=== PATIENT | female | born 1995 | race Caucasian/White ===

== ENCOUNTER 2017-07-06 04:49 | Inpatient (IN) | payer OTHER, MEDICAID ==
[2017-07-06] MEDS ORDERED: BRETHINE IVP PRN ×2 (05:47→09:00)
[2017-07-06] MEDS ORDERED: MINERAL OIL PO PRN ×2 (05:47→08:30)
[2017-07-06] MEDS ORDERED: ePHEDrine SULFATE IV PRN ×2 (05:47→08:30)
[2017-07-06] MEDS ORDERED: BRETHINE SUB-Q PRN ×2 (05:47→09:00)
[2017-07-06] MEDS ORDERED: XYLOCAINE 2% INFILTRATI ONE ×2 (05:47→09:00)
[2017-07-06] MEDS ORDERED: LACTATED RINGERS 1,000 ML ONE (05:48)
[2017-07-06] MEDS ORDERED: PITOCin/NS 30 UNIT/500ML 30 UNITS/500 ML BAG IV SCH ×4 (06:00→08:30)
[2017-07-06] MEDS ORDERED: PITOCin/NS 20 UNIT/1000ML DRIP 20 UNITS/1,000 ML BAG IV SCH ×2 (06:00→09:00)
[2017-07-06 06:04] LABS: Hematocrit 35.7 % (30.3-42.9); Hemoglobin 11.9 gm/dl (10.1-14.3); Mean Corpuscular HGB Conc 33 % (30-34); Mean Corpuscular Hemoglobin 27 pg (28-32); Mean Corpuscular Volume 82 fl (79-97); Platelet Count 178 K/mm3 (140-440); Red Blood Count 4.38 M/mm3 (3.65-5.03); Red Cell Distribution Width 15.7 % (13.2-15.2); White Blood Count 13.4 K/mm3 (4.5-11.0)
[2017-07-06] MEDS ORDERED: SUBLIMAZE IV PRN (06:16)
[2017-07-06] MEDS: LACTATED RINGERS 1,000 ML IV SCH ×2 (06:43→08:18)
[2017-07-06] MEDS ORDERED: fentaNYL-BUPIV 2 MCG/ML-0.125% 0 MCG/0 ML BAG EPIDURAL ONE (07:12)
--- NOTE | 2017-07-06 07:51 | History and Physical Report ---
History of Present Illness Date of examination: 07/06/17 Date of admission: 07/06/17 05:57 History of present illness: 22 yo LMP 07/24/17 @ 37.3 weeks presented to triage in active labor. Second trimeter transfer entry into care at 26 weeks. Morbid Obesity with APA comang' t. U/S for EFW 07/02/17: 6-7oz Past History Past Medical History: no pertinent history Past Surgical History: no surgical history Family/Genetic History: diabetes, hypertension Social history: no significant social history - Obstetrical History Expected Date of Delivery: 07/24/17 Actual Gestation: 37 Week(s) 3 Day(s) : 2 Para: 1 Hx # Term Pregnancies: 1 Number of Living Children: 1 Medications and Allergies Allergies Allergy/AdvReac Type Severity Reaction Status Date / Time No Known Allergies Allergy Unverified 07/06/17 05:07 Home Medications Medication Instructions Recorded Confirmed Last Taken Type Vit-Fe Fumar-FA [ 1 tab PO QDAY 07/06/17 07/06/17 Unknown History Vitamin] Active Meds: Active Medications Ephedrine Sulfate (Ephedrine Sulfate) 10 mg IV Q2M PRN PRN Reason: Hypotension Fentanyl (Sublimaze) 100 mcg IV ONCE PRN PRN Reason: Labor Pain Last Admin: 07/06/17 06:42 Dose: 100 mcg Lactated Ringer's (Lactated Ringers) 1,000 mls @ 125 mls/hr IV DIRECT MICHELLE Last Admin: 07/06/17 06:43 Dose: 125 mls/hr Oxytocin/Sodium Chloride (Pitocin/Ns 20 Unit/1000ml Drip) 20 units in 1,000 mls @ 125 mls/hr IV DIRECT MICHELLE Oxytocin/Sodium Chloride (Pitocin/Ns 30 Unit/500ml) 30 units in 500 mls @ 2 mls /hr IV TITR MICHELLE PRN Reason: Protocol Oxytocin/Sodium Chloride (Pitocin/Ns 30 Unit/500ml) 30 units in 500 mls @ 1 mls /hr IV TITR MICHELLE; 1 MILLIUNITS/MIN PRN Reason: Protocol Mineral Oil (Mineral Oil) 30 ml PO QHS PRN PRN Reason: Constipation Terbutaline Sulfate (Brethine) 0.25 mg SUB-Q ONCE PRN PRN Reason: Hyperstimulation/Hypertonicity Terbutaline Sulfate (Brethine) 0.25 mg IVP ONCE PRN PRN Reason: Hyperstimulation/Hypertonicity Review of Systems All systems: negative - Vital Signs Vital signs: Vital Signs Pulse BP 71 123/82 07/06/17 05:05 07/06/17 05:05 Temp Pulse Resp BP Pulse Ox 98.8 F 110 H 18 127/77 82 L 07/06/17 07:15 07/06/17 07:43 07/06/17 07:15 07/06/17 06:29 07/06/17 07:43 - Physical Exam Breasts: Positive: deferred Abdomen: Positive: normal appearance, soft. Negative: distention Genitourinary (Female): Positive: normal external genitalia, normal perenium Vagina: Positive: normal moisture - Obstetrical FHR: category 1 Uterine Contraction Monitor Mode: External Cervical Dilatation: 10 Cervical Effacement Percentage: 100 station: -3 Uterine Contraction Pattern: Regular Uterine Tone Measurement Phase: Resting Uterine Contraction Intensity: Moderate Results Result Diagrams: 07/06/17 05:43 Abnormal lab results 07/06/17 Range/Units 05:43 WBC 13.4 H (4.5-11.0) K/mm3 MCH 27 L (28-32) pg RDW 15.7 H (13.2-15.2) % All other labs normal. Assessment and Plan A: IUP at 37 weeks Second stage labor Recent Epidural insitu P: AROM Anticipate
[2017-07-06] MEDS ORDERED: LACTATED RINGERS 1,000 ML IV SCH (08:00)
--- NOTE | 2017-07-06 08:02 | Anesthesia Consultation ---
Anesthesia Consult and Med Hx Date of service: 07/06/17 - Airway Anesthetic Teeth Evaluation: Good ROM Head & Neck: Adequate Mental/Hyoid Distance: Adequate Mallampati Class: Class II Intubation Access Assessment: Probably Good - Pulmonary Exam CTA: Yes - Cardiac Exam Cardiac Exam: RRR - Pre-Operative Health Status ASA Pre-Surgery Classification: ASA2 Proposed Anesthetic Plan: Epidural - Pulmonary Hx Asthma: No COPD: No Hx Pneumonia: No - Cardiovascular System Hx Hypertension: No - Central Nervous System Hx Seizures: No Hx Psychiatric Problems: No - Endocrine Hx Renal Disease: No Hx End Stage Renal Disease: No Hx Hypothyroidism: No Hx Hyperthyroidism: No - Hematic Hx Anemia: No Hx Sickle Cell Disease: No - Other Systems Hx Alcohol Use: No
--- NOTE | 2017-07-06 08:30 | Procedure Note ---
OB Delivery Note - Delivery Date of Delivery: 07/06/17 (6-11 oz male @ 0853) Surgeon: FRAN MARS Estimated blood loss: 200cc - Vaginal Delivery presentation: vertex Delivery position: OA Intrapartum events: none Delivery augmentation: rupture of membranes Delivery monitor: external FHT, external uterine Route of delivery: Delivery placenta: spontaneous Delivery cord: 3 umbilical vessels Episiotomy: none Delivery laceration: none Anesthesia: epidural - A at 1 minute: 9 at 5 minutes: 9 Gender: Male (Placed skin to skin. spont. placenta. Bleeding small. FF 3below U, ML. No lacerations.)
[2017-07-06] MEDS ORDERED: PHENERGAN PR PRN (09:15)
[2017-07-06] MEDS ORDERED: TUCKS PAD TP PRN (09:15)
[2017-07-06] MEDS ORDERED: ZOFRAN IV PRN (09:15)
[2017-07-06] MEDS ORDERED: DULCOLAX PR PRN (09:15)
[2017-07-06] MEDS ORDERED: BENADRYL PO PRN (09:15)
[2017-07-06] MEDS ORDERED: PHENERGAN PO PRN (09:15)
[2017-07-06] MEDS ORDERED: MILK OF MAGNESIA PO PRN (09:15)
[2017-07-06] MEDS ORDERED: TYLENOL PO PRN (09:15)
[2017-07-06] MEDS ORDERED: SODIUM CHLORIDE FLUSH SYRINGE 10 ML IV NR (10:00)
[2017-07-06] MEDS: LANSINOH TP PRN (12:59)
[2017-07-06] MEDS: MOTRIN PO SCH ×2 (12:59→18:22)
[2017-07-06] MEDS: NORCO 5/325 PO PRN ×2 (14:20→18:21)
[2017-07-07] MEDS: MOTRIN PO SCH ×5 (00:06→22:00)
--- NOTE | 2017-07-07 10:05 | Progress Note ---
Assessment and Plan PPD#1 s/p ambulating well h/h 11.9-10 Iron given tolerating diet breast and bottle feeding consider d/c home tomorrow routine PP care Subjective - Subjective Date of service: 07/07/17 Principal diagnosis: Patient reports: appetite normal, voiding normally, pain well controlled, flatus , ambulating normally [place]: doing well Objective - Vital Signs Latest vital signs: Vital Signs Temp Pulse Resp BP BP Pulse Ox 07/07/17 08:48 98.2 F 75 18 95/45 98 07/07/17 00:00 98.6 F 66 16 101/68 07/06/17 21:00 98.6 F 71 18 111/68 07/06/17 11:00 97.6 F 68 18 116/59 98 07/06/17 10:38 62 124/66 07/06/17 10:30 18 07/06/17 10:22 73 94/57 07/06/17 10:07 71 108/70 Intake and Output 07/06/17 07/07/17 07/07/17 23:59 07:59 15:59 Intake Total 500 240 240 Balance 500 240 240 Intake: Oral 200 240 Intake, Free Water 300 240 Other: Total, Intake Amount 200 240 # Voids Void 1 - Exam Breasts: Present: normal Cardiovascular: Present: Regular rate, Normal S1 Lungs: Present: Clear to auscultation, Normal air movement Abdomen: Present: normal appearance, soft, normal bowel sounds. Absent: distention, tenderness, guarding Vulva: both: normal Uterus: Present: normal, firm, bogginess, tenderness, fundal height below umbilicus (3cm below) Extremities: Present: normal, edema (trace) Deep Tendon Reflex Grade: Normal +2 - Labs Labs: Abnormal lab results 07/06/17 Range/Units 20:37 Hgb 10.0 L (10.1-14.3) gm/dl
--- NOTE | 2017-07-07 10:08 | Discharge Summary ---
Providers - Providers Date of Admission: 07/06/17 05:57 Date of discharge: 07/08/17 Attending physician: ROLF MARTINEZ Primary care physician: ROLF MARTINEZ Hospitalization Reason for admission: active labor Delivery: Episiotomy: none Laceration: none Other procedures: none complications: none Discharge diagnosis: IUP at term delivered baby: male Condition at discharge: Good Disposition: DC-01 TO HOME OR SELFCARE Plan - Provider Discharge Summary Activity: routine Diet: routine Instructions: routine Additional instructions: [] Smoking cessation referral if applicable(refer to patient education folder for contact #) [] Refer to [facility]'s [facility] Booklet Call your doctor immediately for: * Fever > 100.5 * Heavy vaginal bleeding ( >1 pad per hour) * Severe persistent headache * Shortness of breath * Reddened, hot, painful area to leg or breast * Drainage or odor from incision. * Keep incision clean and dry at all times and follow doctor's instructions regarding bathing/showering - Follow up plan Follow up: ROLF MARTINEZ MD [Primary Care Provider] - 08/05/17
[2017-07-07] MEDS: NORCO 5/325 PO PRN (21:45)
[2017-07-08] MEDS: MOTRIN PO SCH (01:23)
[2017-07-08] MEDS ORDERED: BOOSTRIX IM ONE (06:08)
[2017-07-08] MEDS: LANSINOH TP PRN (07:26)
[2017-07-08] MEDS ORDERED: Fluarix Quad 2017-2018(36 MOS+ IM ONE (12:00)
[2017-07-08 18:10] VITALS: BP 101/65
== END 2017-07-08 14:00 | disposition home or self-care (01) | DRG 775 ==
LOC: TRG 04:49 → LD 05:57 → TRG 05:57 → OB 10:55
PROVIDERS: ADMIT Obstetrics & Gynecology; ATTEND Obstetrics & Gynecology
PROC: 10E0XZZ Delivery of Products of Conception, External Approach (ICD-10-PCS; principal; 2017-07-06)
PROC: 10907ZC Drainage of Amniotic Fluid, Therapeutic from Products of Conception, Via Natural or Artificial Opening (ICD-10-PCS; 2017-07-06)
PROC: 3E0R3BZ Introduction of Anesthetic Agent into Spinal Canal, Percutaneous Approach (ICD-10-PCS; 2017-07-06)
PROC: 00HU33Z Insertion of Infusion Device into Spinal Canal, Percutaneous Approach (ICD-10-PCS; 2017-07-06)
PROC: 3E0234Z Introduction of Serum, Toxoid and Vaccine into Muscle, Percutaneous Approach (ICD-10-PCS; 2017-07-08)
DX: O99.214 Obesity complicating childbirth (principal); Z68.41 Body mass index [BMI] 40.0-44.9, adult; E66.01 Morbid (severe) obesity due to excess calories; Z3A.37 37 weeks gestation of pregnancy; Z37.0 Single live birth; Z82.49 Family history of ischemic heart disease and other diseases of the circulatory system; Z83.3 Family history of diabetes mellitus; Z79.899 Other long term (current) drug therapy; Z23 Encounter for immunization
CPT/HCPCS: 36415; 85014; 85018; 85027; 86592; 86850; 86900; 86901; 90471; 90472; 90686; 90715; 99211; A6250; G0463; J2590; J3010; J7120